=== PATIENT | male | born 1995 | race Caucasian/White ===

== ENCOUNTER 2017-11-16 04:26 | Emergency (ER) | payer OTHER ==
[~2017-11-16] VITALS: Ht 185.4 cm; Wt 68.0 kg
--- NOTE | 2017-11-16 04:28 | ER Report ---
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 He notes some dull left-sided chest pain, some right- sided neck pain and some left-sided headache. Patient states he's been unable to sleep well. He denies recent illness, fever, chills, productive cough or sore throat. His initial concern was that he may have elevated blood pressure tonight. He is having trouble quantitating his symptoms. He states that he feels his stroke volume. His increased of his heart. When asked specific questions. He seems to go off with tangential answers. Patient denies any history of mental health disorder. Patient denies sympathomimetic drinks to excess. Patient denies significant past medical history. Patient notes cold intolerance. He describes his chest pain is supple. Threshold. He notes no alleviating or exacerbating factors. REVIEW OF SYSTEMS: Respiratory: No cough, no dyspnea. Cardiovascular: No chest pain, no palpitations. Gastrointestinal: No vomiting, no abdominal pain. Musculoskeletal: No back pain. Allergies: Coded Allergies: No Known Drug Allergies (Unverified , 11/16/17) Reviewed Nurses Notes: Yes Old Medical Records Reviewed: Yes Constitutional Vital Sign - Last 24 Hours 11/16/17 11/16/17 04:40 06:33 Temp 99.0 Pulse 80 79 Resp 20 20 B/P (MAP) 148/93 116/89 (98) Pulse Ox 99 96 O2 Delivery Room Air Room Air Physical Exam Vital signs stable,, blood pressure mildly elevated. Pulse ox normal, temperature 99.0 General Appearance: The patient is alert, has no immediate need for airway protection and no current signs of toxicity. No acute distress HEENT: Pupils equal and round no injection. TMs normal, oropharynx without redness or exudate, mucous. Membranes are moist Respiratory: Chest is non tender, lungs are clear to auscultation. No chest wall tenderness Cardiac: regular rate and rhythm, no murmur Gastrointestinal: Abdomen is soft and non tender, no masses, bowel sounds normal. Musculoskeletal: Neck: Neck is supple and non tender. No lymphadenopathy, no thyromegaly Extremities have full range of motion and are non tender. No edema, no calf tenderness Skin: No rashes or lesions. DIFFERENTIAL DIAGNOSIS: After history and physical exam differential diagnosis was considered for chest pain including but not limited to myocardial ischemia, pericarditis pulmonary embolus, chest wall pain, pleural inflammation, anxiety, mood disorder and pulmonary infectious causes. Medical Decision Making Data Points Result Diagram: 11/16/17 0512 11/16/17 0512 Laboratory Hematology Test 11/16/17 05:12 Red Blood Count 5.67 M/uL (4.00-5.60) Mean Corpuscular Volume 90.2 fL (80.0-96.0) Mean Corpuscular Hemoglobin 31.0 pg (26.0-33.0) Mean Corpuscular Hemoglobin Concent 34.4 g/dL (32.0-36.0) Red Cell Distribution Width 12.9 % (11.5-14.5) Mean Platelet Volume 8.8 fL (7.2-11.1) Neutrophils (%) (Auto) 71.8 % (39.4-72.5) Lymphocytes (%) (Auto) 18.6 % (17.6-49.6) Monocytes (%) (Auto) 8.3 % (4.1-12.4) Eosinophils (%) (Auto) 0.7 % (0.4-6.7) Basophils (%) (Auto) 0.6 % (0.3-1.4) Nucleated RBC Relative Count (auto) 0.0 /100WBC Neutrophils # (Auto) 5.2 K/uL (2.0-7.4) Lymphocytes # (Auto) 1.4 K/uL (1.3-3.6) Monocytes # (Auto) 0.6 K/uL (0.3-1.0) Eosinophils # (Auto) 0.0 K/uL (0.0-0.5) Basophils # (Auto) 0.0 K/uL (0.0-0.1) Nucleated RBC Absolute Count (auto) 0.00 K/uL D-Dimer Quantitative (PE/DVT) < 0.27 ug/ml (0-0.50) Sodium Level 140 mmol/L (137-145) Potassium Level 3.2 mmol/L (3.5-5.0) Chloride Level 102 mmol/L (98-107) Carbon Dioxide Level 23 mmol/L (22-30) Blood Urea Nitrogen 15 mg/dl (9-21) Creatinine 0.90 mg/dl (0.66-1.25) Glomerular Filtration Rate Calc > 60.0 Random Glucose 94 mg/dl (75-110) Calcium Level 9.8 mg/dl (8.4-10.2) Total Bilirubin 0.7 mg/dl (0.2-1.3) Aspartate Amino Transf (AST/SGOT) 27 U/L (0-35) Alanine Aminotransferase (ALT/SGPT) 35 U/L (0-56) Alkaline Phosphatase 62 U/L (0-126) Troponin I < 0.012 ng/ml Total Protein 7.7 gm/dl (6.3-8.2) Albumin 4.5 g/dl (3.5-5.0) Chemistry Test 11/16/17 05:12 White Blood Count 7.3 k/uL (4.5-11.0) Red Blood Count 5.67 M/uL (4.00-5.60) Hemoglobin 17.6 g/dL (14.0-18.0) Hematocrit 51.2 % (42.0-52.0) Mean Corpuscular Volume 90.2 fL (80.0-96.0) Mean Corpuscular Hemoglobin 31.0 pg (26.0-33.0) Mean Corpuscular Hemoglobin Concent 34.4 g/dL (32.0-36.0) Red Cell Distribution Width 12.9 % (11.5-14.5) Platelet Count 165 K/uL (150-450) Mean Platelet Volume 8.8 fL (7.2-11.1) Neutrophils (%) (Auto) 71.8 % (39.4-72.5) Lymphocytes (%) (Auto) 18.6 % (17.6-49.6) Monocytes (%) (Auto) 8.3 % (4.1-12.4) Eosinophils (%) (Auto) 0.7 % (0.4-6.7) Basophils (%) (Auto) 0.6 % (0.3-1.4) Nucleated RBC Relative Count (auto) 0.0 /100WBC Neutrophils # (Auto) 5.2 K/uL (2.0-7.4) Lymphocytes # (Auto) 1.4 K/uL (1.3-3.6) Monocytes # (Auto) 0.6 K/uL (0.3-1.0) Eosinophils # (Auto) 0.0 K/uL (0.0-0.5) Basophils # (Auto) 0.0 K/uL (0.0-0.1) Nucleated RBC Absolute Count (auto) 0.00 K/uL D-Dimer Quantitative (PE/DVT) < 0.27 ug/ml (0-0.50) Glomerular Filtration Rate Calc > 60.0 Calcium Level 9.8 mg/dl (8.4-10.2) Total Bilirubin 0.7 mg/dl (0.2-1.3) Aspartate Amino Transf (AST/SGOT) 27 U/L (0-35) Alanine Aminotransferase (ALT/SGPT) 35 U/L (0-56) Alkaline Phosphatase 62 U/L (0-126) Troponin I < 0.012 ng/ml Total Protein 7.7 gm/dl (6.3-8.2) Albumin 4.5 g/dl (3.5-5.0) Coagulation Test 11/16/17 05:12 D-Dimer Quantitative (PE/DVT) < 0.27 ug/ml EKG/Imaging EKG Interpretation 12 lead EK Rhythm: Normal sinus rhythm [place]: Left axis deviation QRS: normal ST segments: normal, no evidence of ischemia or dysrhythmia Imaging X-ray: Two-view chest x-ray was obtained. I viewed the images myself on the PACS system. My interpretation of the images is: No infiltrate, no effusion, normal mediastinum. The radiologist interpretation had no clinically significant variation from this interpretation. ED Course/Re-evaluation ED Course Patient was admitted to an examination room. H&P was done. The differential diagnoses was considered. On clinical examination. Patient has normal vital signs and a benign clinical examination. He is a variety of symptoms which seems primarily psychosomatic. Patient does appear anxious. Although he denies any history of anxiety or stress. He describes palpitations. His EKG, troponin and d-dimer are unremarkable. His chest x-ray is normal. Patient's potassium is noted to be mildly low. He is advised to increase his potassium intake and follow-up with primary care. Offer him some Ativan, which she declined. He was given information for internal medicine clinic. Decision to Disposition Date: Nov 16, 2017 Decision to Disposition Time: 06:06 Depart Departure Latest Vital Signs Vital Signs Date Time Temp Pulse Resp B/P (MAP) Pulse Ox O2 Delivery O2 Flow Rate FiO2 11/16/17 06:33 79 20 116/89 (98) 96 Room Air 11/16/17 04:40 99.0 Impression: Primary Impression: Heart palpitations Additional Impression: Fatigue Condition: Improved Disposition: HOME OR SELF-CARE Referrals: KENIA PHILLIPS MD, FARRUKH MD Patient Instructions: Fatigue (ED), Palpitations (ED) Additional Instructions: Follow-up with the internal medicine doctors listed on your paperwork within one week Return to the ER for any worsening Problem Qualifiers Additional Impression: Fatigue Fatigue type: unspecified Qualified Codes: R53.83 - Other fatigue ARABELLA CARNEY DO Nov 16, 2017 04:28
--- NOTE | 2017-11-16 05:03 | EKG ---
FACILITY: [facility] - [place] PATIENT NAME: BEREKET LÓPEZ : [id number] MR: [id number] V: [id number] EXAM DATE: ORDERING PHYSICIAN: ARABELLA CARNEY TECHNOLOGIST: VICKI Test Reason : PALPITATIONS Blood Pressure : / mmHG Vent. Rate : 067 BPM Atrial Rate : 067 BPM P-R Int : 162 ms QRS Dur : 116 ms QT Int : 388 ms P-R-T Axes : 074 -66 062 degrees QTc Int : 409 ms Normal sinus rhythm Left axis deviation Abnormal ECG No previous ECGs available Confirmed by SUMAYA URENA ([id number]) on 11/17/2017 8:57:00 AM Referred By: Confirmed By:SUMAYA URENA
[2017-11-16 05:21] LABS: PLATELET COUNT, AUTOMATED 165 K/uL (150-450)
--- NOTE | 2017-11-16 05:53 | RADIOLOGY IMAGING REPORT ---
FACILITY: [facility] PATIENT NAME: Milind Fried : 1995 MR: [id number] V: [id number] EXAM DATE: ORDERING PHYSICIAN: ARABELLA CARNEY TECHNOLOGIST: Location[place] [facility] [place] Patient: Milind Fried : 1995 Visit/Account:[id number] Date of Sevice: 11/16/2017 CHEST PA AND LAT HISTORY: Chest pain COMPARISON: None FINDINGS: Cardiomediastinal contours: Normal Lungs and pleura: Normal Bones/soft tissues: Normal Other findings: None significant IMPRESSION: 1. Normal chest Report Dictated By: Felix Painter MD at 11/16/2017 5:48 AM Report E-Signed By: Felix Painter MD at 11/16/2017 5:49 AM WSN:[id number]
[2017-11-16 06:33] VITALS: BP 116/89
== END 2017-11-16 06:48 | disposition home or self-care (01) ==
LOC: ER 04:29
DX: R00.2 Palpitations (principal); R53.83 Other fatigue
CPT/HCPCS: 36415; 71046; 82040; 82247; 82310; 82374; 82435; 82565; 82947; 84075; 84132; 84155; 84295; 84443; 84450; 84460; 84484; 84520; 85025; 85379; 93005; 99283